=== PATIENT | female | born 1940 | race Native Hawaiian/Other Pacific Islander ===

== ENCOUNTER 2017-06-18 09:45 | Outpatient (CLI) | payer OTHER | END 2017-06-18 10:45 | disposition home or self-care (01) | LOC: RAD 09:45 | DX: M81.0 Age-related osteoporosis without current pathological fracture (principal) ==

== ENCOUNTER 2017-08-05 11:37 | Outpatient (CLI) | payer OTHER | END 2017-08-05 12:40 | disposition home or self-care (01) | LOC: RAD 11:37 | DX: K59.01 Slow transit constipation (principal) ==

== ENCOUNTER 2018-09-03 10:48 | Outpatient (CLI) | payer OTHER | END 2018-09-03 21:34 | disposition home or self-care (01) | LOC: RAD 10:48 | DX: M54.17 Radiculopathy, lumbosacral region (principal) ==

== ENCOUNTER 2020-03-21 09:32 | Outpatient (CLI) | payer OTHER | END 2020-03-21 19:28 | disposition home or self-care (01) | LOC: MRI 09:32 | DX: M25.551 Pain in right hip (principal); M47.896 Other spondylosis, lumbar region ==

== ENCOUNTER 2020-04-27 11:30 | Outpatient (CLI) | payer OTHER ==
[2020-04-27 12:59] LABS: POTASSIUM 3.2 mmol/L (3.6-5.2)
[2020-04-27 13:28] LABS: PLATELET COUNT 272 K/uL (152-353)
== END 2020-04-27 22:01 | disposition home or self-care (01) ==
LOC: LABW 11:30
PROVIDERS: Neurological Surgery
DX: Z01.818 Encounter for other preprocedural examination (principal)
CPT/HCPCS: 36415; 80048; 81000; 85027; 93005

== ENCOUNTER 2020-08-31 10:40 | Outpatient (CLI) | payer OTHER | END 2020-08-31 20:21 | disposition home or self-care (01) | LOC: RAD 10:40 | PROVIDERS: ATTEND Family Medicine | DX: M25.551 Pain in right hip (principal) ==

== ENCOUNTER 2020-10-07 08:46 | Outpatient (CLI) | payer OTHER | END 2020-10-07 19:25 | disposition home or self-care (01) | LOC: MRI 08:46 | PROVIDERS: ATTEND Neurological Surgery | DX: M48.062 Spinal stenosis, lumbar region with neurogenic claudication (principal); M51.16 Intervertebral disc disorders with radiculopathy, lumbar region | CPT/HCPCS: 36415; 82565; 84520; A9576 ==

== ENCOUNTER 2021-01-11 09:21 | Outpatient (CLI) | payer OTHER ==
[2021-01-11 10:12] LABS: PLATELET COUNT 242 K/uL (152-353)
[2021-01-11 10:15] LABS: POTASSIUM 3.9 mmol/L (3.6-5.2)
== END 2021-01-11 20:41 | disposition home or self-care (01) ==
LOC: LABW 09:21
PROVIDERS: ATTEND Nurse Practitioner Family
DX: R60.0 Localized edema (principal)
CPT/HCPCS: 36415; 80053; 83880; 85027

== ENCOUNTER 2023-02-12 09:20 | Emergency (ER) | payer OTHER ==
[~2023-02-12] VITALS: Ht 160 cm; Wt 76.7 kg
[2023-02-12 09:25] VITALS: BP 127/56; TEMP 98
[2023-02-12 10:27] LABS: PLATELET COUNT 299 K/uL (152-353)
[2023-02-12 10:32] LABS: POTASSIUM 3.6 mmol/L (3.6-5.2); SODIUM 141 mmol/L (136-145)
== END 2023-02-12 12:59 | disposition home or self-care (01) ==
LOC: ED 09:20
PROVIDERS: Family Medicine
DX: M54.9 Dorsalgia, unspecified (principal)
CPT/HCPCS: 80053; 80143; 80179; 80307; 80320; 81000; 85027; 87077; 87086; 87088; 87186; 87635; 93005; 96372; 99285; J1100; U0003

== ENCOUNTER 2023-02-13 19:34 | Emergency (ER) | payer OTHER ==
[~2023-02-13] VITALS: Ht 160 cm; Wt 76.7 kg
[2023-02-13 21:30] VITALS: BP 100/50; TEMP 97.7
== END 2023-02-13 21:30 | disposition home or self-care (01) ==
LOC: ED 19:34
DX: M54.16 Radiculopathy, lumbar region (principal)
CPT/HCPCS: 96372; 99283; J1885; J2360

== ENCOUNTER 2023-02-18 11:56 | Outpatient (CLI) | payer OTHER | END 2023-02-18 18:59 | disposition home or self-care (01) | LOC: RAD 11:56 | PROVIDERS: ATTEND Physician Assistant | DX: M79.642 Pain in left hand (principal) ==

== ENCOUNTER 2023-02-26 19:46 | Emergency (ER) | payer OTHER ==
[~2023-02-26] VITALS: Ht 160 cm; Wt 76.7 kg
[2023-02-26 20:03] VITALS: BP 136/64; TEMP 98.8
== END 2023-02-26 21:35 | disposition home or self-care (01) ==
LOC: ED 19:46
DX: M54.9 Dorsalgia, unspecified (principal); F43.20 Adjustment disorder, unspecified; R55 Syncope and collapse
CPT/HCPCS: 96374; 96375; 99283; J1885